=== PATIENT | female | born 1990 | race Caucasian/White ===

== ENCOUNTER 2019-05-16 05:49 | Inpatient (IN) | payer BC ==
[2019-05-16] VITALS (16 sets, daily range): BP systolic 120–147; BP diastolic 40–93; PULSE 78–108; TEMP 97.9–98.3
[~2019-05-16] VITALS: Ht 160.1 cm; Wt 94.1 kg
[~2019-05-16 05:49] MED LIST: FERROUS SULFATE65 MG PO; MOTRIN 600600 MG/TAB PO; PERCOCET 325 MG1 TA2 PO; PRENATAL1 TA7 PO
--- NOTE | 2019-05-16 06:30 | NUR ---
Difficulty tracing FHR and FHR monitor intermittenly tracing maternal heart rate. This RN at bedside adjusting FHR monitor. 0631: FHR decreasing to 90-100bpm for approx 2 minutes and returns to baseline. 0710: Patient off monitor and to OR. Dr. Garcia updated on FHR strip and that no accelerations noted.
[2019-05-16 06:33] LABS: BASO % 0.4 % (0.0-2.0); EOS # 0.1 (0.0-0.7); EOS % 1.4 % (0-4.0); GRAN # 5.4 (1.4-6.5); LYMPH # 1.7 (1.2-3.4); LYMPH % 21.7 % (20.0-51.0); MEAN CELL VOLUME 81 fl (80.0-100.0); MEAN CORPUSCULAR HEMOGLOBIN 25 pg (27.0-31.0); MEAN CORPUSCULAR HGB CONC 31 g/dl (33.0-37.0); MEAN PLATELET VOLUME 10.4 fl (7.4-10.4); MONO # 0.5 (0.1-0.6); MONO % 6.1 % (1.7-9.3); PLATELET COUNT 237 K/mm3 (130-400); RED BLOOD COUNT 3.99 M/mm3 (4.10-5.30); REDCELL DISTRIBUTION WIDTH-CV 15.1 % (11.5-14.5)
[2019-05-16 06:38] LABS: HEMATOCRIT 32.2 % (37.0-47.0)
--- NOTE | 2019-05-16 15:00 | NUR ---
1500 NORIEGA DISCONTINUED, PATIENT AMBULATED STAND BY ASSIST TO BATHROOM. TOLERATED WELL. LUCRECIA CARE PROVIDED. BINDER APPLIED. INSTRUCTED ON POC. STATED UNDERSTANDING. VSS. DENIES NEEDS
[2019-05-17] VITALS: BP 122/74; PULSE 80; TEMP 98
[2019-05-17 07:40] VITALS: BP 131/80; PULSE 83; TEMP 97.6
[2019-05-17 16:00] VITALS: BP 134/62; PULSE 88; TEMP 97.4
[2019-05-17 20:00] VITALS: BP 117/68; PULSE 92; TEMP 98.2
[2019-05-18 07:20] VITALS: BP 131/68; PULSE 91; TEMP 98.1
[2019-05-18] MEDS ORDERED: PERCOCET 325 MG1 TA2 PO (08:20)
[2019-05-18] MEDS ORDERED: IBU600 MG PO (08:20)
== END 2019-05-18 10:50 | disposition home or self-care (01) | DRG 788 ==
LOC: OB 05:49 → LDR 10:37 → OB 05-18 10:50
PROVIDERS: ADMIT Obstetrics & Gynecology
PROC: 10D00Z1 Extraction of Products of Conception, Low, Open Approach (ICD-10-PCS; principal; 2019-05-16)
DX: O34.211 Maternal care for low transverse scar from previous cesarean delivery (principal); O99.214 Obesity complicating childbirth; E66.9 Obesity, unspecified; O99.02 Anemia complicating childbirth; D64.9 Anemia, unspecified; Z3A.39 39 weeks gestation of pregnancy; Z37.0 Single live birth; Z23 Encounter for immunization
CPT/HCPCS: J0690; J1885; J2370; J2405; J2590; J3010; J7120

== ENCOUNTER 2020-12-08 05:38 | Inpatient (IN) | payer BC ==
[2020-12-08] VITALS (19 sets, daily range): BP systolic 104–142; BP diastolic 51–88; PULSE 76–104; TEMP 97.6–98.4
[~2020-12-08] VITALS: Ht 160.1 cm; Wt 96.6 kg
[~2020-12-08 05:38] MED LIST changes: +IBU600 MG PO
[2020-12-08 06:40] LABS: BASO % 0.4 % (0.0-2.0); EOS # 0.1 (0.0-0.7); EOS % 1.5 % (0-4.0); GRAN # 6.1 (1.4-6.5); GRAN % 72.2 % (42.2-75.2); LYMPH # 1.6 (1.2-3.4); LYMPH % 19.2 % (20.0-51.0); MEAN CELL VOLUME 79 fl (80.0-100.0); MEAN CORPUSCULAR HGB CONC 32 g/dl (33.0-37.0); MEAN PLATELET VOLUME 10.5 fl (7.4-10.4); MONO # 0.5 (0.1-0.6); PLATELET COUNT 194 K/mm3 (130-400); RED BLOOD COUNT 3.62 M/mm3 (4.10-5.30); REDCELL DISTRIBUTION WIDTH-CV 15.7 % (11.5-14.5)
[2020-12-08 06:43] LABS: HEMATOCRIT 28.5 % (37.0-47.0); MEAN CORPUSCULAR HEMOGLOBIN 25 pg (27.0-31.0)
--- NOTE | 2020-12-08 12:50 | NUR ---
1044 PT REQUESTS PERCOCET. 1 TAB GIVEN AT THIS TIME. 1230 PT REQUESTING 2ND PERCOCET. PT INFORMED 4 HOUR TIMING STARTS OVER NOW FOR PRN USAGE.
[2020-12-09 03:15] VITALS: BP 134/83; PULSE 90; TEMP 97.8
[2020-12-09 09:19] VITALS: BP 128/66; PULSE 90; TEMP 99.4
--- NOTE | 2020-12-09 14:45 | NUR ---
Rests in bed, alert. Ibuprofen 600 mg given as ordered.
[2020-12-09 17:50] VITALS: BP 142/80; PULSE 80; TEMP 98
[2020-12-09 20:00] VITALS: BP 139/74; PULSE 79; TEMP 98
[2020-12-10] MEDS ORDERED: PERCOCET 325 MG1 TA2 PO (09:18)
[2020-12-10] MEDS ORDERED: IBU600 MG PO (09:18)
== END 2020-12-10 11:25 | disposition home or self-care (01) | DRG 788 ==
LOC: OB 05:38
PROVIDERS: ADMIT Obstetrics & Gynecology
PROC: 10D00Z1 Extraction of Products of Conception, Low, Open Approach (ICD-10-PCS; principal; 2020-12-08)
DX: O34.211 Maternal care for low transverse scar from previous cesarean delivery (principal); O99.02 Anemia complicating childbirth; D64.9 Anemia, unspecified; Z3A.39 39 weeks gestation of pregnancy; Z37.0 Single live birth
CPT/HCPCS: J0690; J1100; J1885; J2405; J2590; J2765; J7120